=== PATIENT | female | born 1975 | race Caucasian/White ===

== ENCOUNTER 2022-01-15 18:46 | Emergency (ER) | payer OTHER, SELFPAY ==
[2022-01-15 19:02] VITALS: BP 143/101; PULSE 80; RESP 16; TEMP 36.4; O2SAT 100
--- NOTE | 2022-01-15 19:05 | ED.GENADULT ---
HPI - General Adult General Chief complaint: Urogenital-Female Stated complaint: Possible UTI Time Seen by Provider: 01/15/22 18:49 Source: patient Mode of arrival: ambulatory Limitations: no limitations History of Present Illness HPI narrative: Patient presents for evaluation of urinary symptoms that started today. Symptoms include dysuria and urinary frequency. She denies fever, chills, nausea, vomiting, abdominal pain, back pain, vaginal bleeding/discharge, hematuria. She was previously on OC but forgot her medication when she went on vacation. She did not have periods while on OC so she is unsure date of LMP. She is not taking any medication for her symptoms. She thinks she has a UTI. Related Data Allergies Allergy/AdvReac Type Severity Reaction Status Date / Time No Known Allergies Allergy Unverified 01/19/14 16:53 Review of Systems Review of Systems: CONSTITUTIONAL: Denies fever, chills, or sweats. EYES: Denies visual changes, redness, or discharge. ENT: Denies rhinorrhea, congestion, sore throat, or otalgia. CARDIOVASCULAR: Denies chest pain, palpitations, or edema. RESPIRATORY: Denies cough or dyspnea. GASTROINTESTINAL: Denies abdominal pain, nausea, vomiting, or diarrhea. GENITOURINARY: Reports urinary frequency and dysuria. SKIN: Denies rash or itching. MUSCULOSKELETAL: Denies back pain, joint pain, or myalgia. NEUROLOGIC: Denies headache, numbness, dizziness, or weakness. PSYCHIATRIC: Denies anxiety or depression. PMFSH Past Medical History Medical History No pertinent past medical history Surgical History Surgical History No pertinent past surgical history Family History Family History Mother Family history non-contributory Social History Social History Smoking status: Never smoker Substance use: never Gender identity (if verbalized by the patient): Female Spiritual care concerns: No Exam Narrative: GENERAL: Well-appearing, well-nourished, and in no acute distress. HEAD: Normocephalic, atraumatic. EYES: PERRLA and EOMI. ENT: Nares clear, no rhinorrhea or epistaxis. Mucous membranes moist. Oropharynx without tonsillar hypertrophy exudate or other lesions. Bilateral TMs pearly webb nonbulging NECK: Supple. No adenopathy or masses. No carotid bruits or JVD CHEST: Clear to auscultation. No respiratory distress. No wheezes rales or rhonchi HEART: Regular rate and rhythm. No murmur heard. Normal peripheral pulses. ABDOMEN: Soft, nontender, nondistended, normal active bowel sounds. BACK: No CVA tenderness EXTREMITIES: Normal range of motion. No edema. SKIN: Warm, dry, no rash. NEURO: No focal deficits. Alert and oriented x3. PSYCH: Normal mood and affect. Course Course Emergency Course: This is a 46-year-old female who presented with complaints of urinary frequency. She had leukocytes in urine. Will treat for UTI with macrobid. No systemic signs of infection. No abdominal or flank pain to suggest stone. Advised increased hydration. F/U with PCP outpatient and go to ER for systemic signs of infection or worsening/persistent symptoms. Pt in agreement with plan of care. Level of Care: Express Care Visit Vital Signs Vital signs: Vital Signs Temperature 36.4 C L 01/15/22 19:02 Pulse Rate 80 01/15/22 19:02 Respiratory Rate 16 01/15/22 19:02 Blood Pressure 143/101 H 01/15/22 19:02 Pulse Oximetry 100 01/15/22 19:02 Temperature 36.4 C L 01/15/22 19:02 Pulse Rate 80 01/15/22 19:02 Respiratory Rate 16 01/15/22 19:02 Blood Pressure 143/101 H 01/15/22 19:02 Pulse Oximetry 100 01/15/22 19:02 Medical Decision Making Differential Diagnosis Differential Diagnosis: Cystitis versus pyelonephritis versus interstitial cystit
== END 2022-01-15 19:09 | disposition home or self-care (01) ==
PROVIDERS: Emergency Provider Nurse Practitioner; PCP Obstetrics & Gynecology
DX: N30.00 Acute cystitis without hematuria (principal)
CPT/HCPCS: 81003; 87077; 87086; 87186; 99203; G0463

== ENCOUNTER 2022-10-30 15:00 | Emergency (ER) | payer OTHER, SELFPAY ==
[2022-10-30 15:10] VITALS: BP 153/98; PULSE 80; RESP 16; TEMP 36.6; O2SAT 100
--- NOTE | 2022-10-30 15:27 | ED.URI ---
HPI - URI/Sore Throat General Chief Complaint: Upper Respiratory Infection Stated Complaint: headache, sore throat, cough, congestion Time Seen by Provider: 10/30/22 15:28 Source: patient and RN notes reviewed Mode of arrival: ambulatory Limitations: no limitations History of Present Illness HPI Narrative: 47-year-old female presents concern for one-week history of sinus congestion, headache, sinus drainage, sore throat, cough. Reports she has taken [id number] medications without relief. 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 EYES: Denies visual changes, redness, or discharge. ENT: Reports rhinorrhea, congestion, sinus pain, and sore throat. CARDIOVASCULAR: Denies chest pain, palpitations, or edema. RESPIRATORY: Reports cough. Denies dyspnea. GASTROINTESTINAL: Denies abdominal pain, nausea, vomiting, diarrhea SKIN: Denies rash or itching. MUSCULOSKELETAL: Denies myalgia. NEUROLOGIC: Reports headache. All systems reviewed & are unremarkable except as noted in HPI and below PMFSH Past Medical History Medical History (Updated 10/30/22 @ 15:37 by Susan Escalante NP) No pertinent past medical history Surgical History Surgical History No pertinent past surgical history Family History Family History Mother Family history non-contributory Social History Social History Smoking status: Never smoker Substance use: never Gender identity (if verbalized by the patient): Female Spiritual care concerns: No Comments At time of signature, agree with nursing past medical, surgical, social and family history. There is no relevant family history pertinent to the presenting complaint Exam Narrative: GENERAL: Well-appearing, well-nourished, and in no acute distress. HEAD: Normocephalic EYES: PERRLA, conjunctivae clear ENT: Nares clear, turbinates edematous and erythematous, yellow discharge. Mucous membranes moist. TM pearly webb with dull light reflex bilaterally; no tragal tenderness. Oropharynx erythematous without lesions. Tonsils not enlarged and without exudate, no drooling, no hoarseness, no trismus, uvula midline. NECK: Supple. No lymphadenopathy CHEST: Clear to auscultation, breath sounds equal. No wheezing, rhonchi, rales, or stridor. No respiratory distress, speaks in full sentences. HEART: Regular rate and rhythm. No murmur heard. SKIN: Warm, dry, no rash. NEURO: Alert and oriented x3. PSYCH: Normal mood and affect Course Course Emergency Course: Patient is aware of diagnosis, understands and agrees to treatment plan. Anticipatory guidance given. Patient agrees to follow-up as directed and is aware of reasons to seek care at the emergency department. Portions of this record may have been created with voice recognition software Level of Care: Express Care Visit Vital Signs Vital signs: Vital Signs Temperature 97.8 F 10/30/22 15:10 Pulse Rate 80 10/30/22 15:10 Respiratory Rate 16 10/30/22 15:10 Blood Pressure 153/98 H 10/30/22 15:10 Pulse Oximetry 100 10/30/22 15:10 Oxygen Delivery Room Air 10/30/22 15:10 Temperature 97.8 F 10/30/22 15:10 Pulse Rate 80 10/30/22 15:10 Respiratory Rate 16 10/30/22 15:10 Blood Pressure 153/98 H 10/30/22 15:10 Pulse Oximetry 100 10/30/22 15:10 Oxygen Delivery Room Air 10/30/22
== END 2022-10-30 15:44 | disposition home or self-care (01) ==
PROVIDERS: Emergency Provider Nurse Practitioner
DX: J01.90 Acute sinusitis, unspecified (principal); B96.89 Other specified bacterial agents as the cause of diseases classified elsewhere
CPT/HCPCS: 99213; G0463